=== PATIENT | female | born 1955 | race Two or more races ===

== ENCOUNTER 2024-06-09 15:37 | Emergency (ER) | payer OTHER, MEDICAID, SELFPAY ==
[2024-06-09 16:03] VITALS: BP 132/76; PULSE 86; RESP 16; TEMP 37.1; O2SAT 96
--- NOTE | 2024-06-09 16:09 | XR_ITS ---
Examination: CT cervical spine without contrast 2-D sagittal reconstructions 2-D coronal reconstructions 3-D reconstructions. Exam date and time:June 09, 2024 administered 444 PM Indications: Patient fell today with injury to the neck, neck pain CTDI:vol (mGy) 8.28 DLP: (mGycm) 168 Technique: Multiple 2 mm axial sections of the cervical spine have been obtained. The coronal and sagittal reconstructions have been obtained. 3-D reconstructions have been obtained. Low dose protocols were performed. One or more of the following dose reduction techniques were used; automated exposure control, adjustment of the mA and/or KV according to patient size, use of iterative reconstruction technique. Findings: Axial sections demonstrate intact base of the skull. C1 exhibit satisfactory relationship to the odontoid. No acute cervical vertebral body fracture seen. Alignment posterior spinous processes satisfactory. Impression: No acute cervical fracture.
--- NOTE | 2024-06-09 16:09 | XR_ITS ---
Examination: Vertebroplasty right elbow 3 views Technique: Elbow AP, oblique, lateral 3 views Exam date and time: June 09, 2024 1611 hrs. Indications: Patient fell today with injury to the elbow, elbow pain. Findings: No fracture or dislocation No foreign body Impression: No fracture or dislocation.
--- NOTE | 2024-06-09 16:09 | XR_ITS ---
Examination: CT brain head without contrast. 2-D sagittal coronal reconstructions Date and time of exam:June 09, 2024 1644 hrs. Indications: Patient fell today with injury to the head, head pain CTDI: vol (mGy):52.1 DLP: (mGycm):1059 Technique: Multiple CT axial sections of the brain have been obtained, 5 mm slice thickness. Contrast has not been administered. 2-D sagittal, coronal reconstructions have been obtained Low dose protocols were performed. One or more of the following dose reduction techniques were used; automated exposure control, adjustment of the mA and/or KV according to patient size, use of iterative reconstruction technique. Findings: No significant ventricular enlargement. Intra-axial or extra-axial hemorrhage density is not seen. No mass effect or midline shift Basal cisterns are not remarkable. Fourth ventricle is midline. Cranial vault intact. Impression: Negative for acute hemorrhage, mass effect or midline shift
--- NOTE | 2024-06-09 16:09 | XR_ITS ---
Examination: CT thoracic spine, without contrast. 2-D sagittal reconstructions. 2-D coronal reconstructions. 3-D reconstructions. Date and time of exam:June 09, 2024 1647 hrs. Indications: Patient fell today with injury to the upper back, upper back pain CTDI: vol (mGy):22.1 DLP: (mGycm):771 Technique: Multiple 1.25 mm axial sections of the thoracic spine without intravenous contrast have been obtained. 2-D sagittal and coronal reconstructions have been obtained. 3-D reconstructions have been obtained. Low dose protocols were performed. One or more of the following dose reduction techniques were used; automated exposure control, adjustment of the mA and/or KV according to patient size, use of iterative reconstruction technique. Findings: Moderate osteopenia Adequate alignment thoracic vertebral bodies on the lateral view No thoracic vertebral body compression fracture Mild thoracic spondylosis Thoracic pedicles, laminae, transverse and posterior spinous processes intact No focal thoracic disc protrusions Impression: No acute thoracic fracture
--- NOTE | 2024-06-09 16:09 | XR_ITS ---
Examination: CT pelvis without intravenous contrast. 2-D sagittal and coronal reconstructions. Date and time of exam:June 09, 2024 1652 hrs. Indications: Patient fell today with injury to the left hip, left hip pain CTDI: vol (mGy) :6.89 DLP: (mGycm) : 199 Technique: Multiple 3 mm axial sections of the pelvis have been obtained with the 64 slice high resolution scanner. 2-D sagittal and coronal reconstructions. Low dose protocols were performed. One or more of the following dose reduction techniques were used; automated exposure control, adjustment of the mA and/or KV according to patient size, use of iterative reconstruction technique. Findings: Significant osteopenia Iliac bones acetabular regions anterior rami intact No hip fractures or hip dislocations No pelvic hematoma Normal appendix Urinary bladder intact, contracted Impression: No acute hip or pelvic fracture
--- NOTE | 2024-06-09 16:09 | XR_ITS ---
Examination: CT lumbar spine, without contrast. 2-D sagittal reconstructions. 2-D coronal reconstructions. 3-D reconstructions. Date and time of exam:June 09, 2024 1647 hrs. Indications: Patient fell today with injury to lower back, lower back pain CTDI: vol (mGy):17.7 DLP: (mGycm):527 Technique: Multiple 1.25 mm axial sections of the lumbar spine without intravenous contrast have been obtained. 2-D sagittal and coronal reconstructions have been obtained. 3-D reconstructions have been obtained. Low dose protocols were performed. One or more of the following dose reduction techniques were used; automated exposure control, adjustment of the mA and/or KV according to patient size, use of iterative reconstruction technique. Findings: Adequate alignment lumbar vertebral bodies No lumbar vertebral body compression fracture Moderate lumbar spondylosis Lumbar pedicles, laminae, transverse and posterior spinous processes intact Soft tissue settings demonstrate no lumbar disc protrusion Impression: No acute lumbar fracture
--- NOTE | 2024-06-09 16:10 | PD.EDRME ---
Rapid Medical Screening Exam RME Arrival date/time: 06/09/24 15:37 68-year-old female with Parkinson's disease presents to the emergency department complaint of ground-level fall today Chief Complaint: Fall Vital signs: Vital Signs Temperature 98.7 F 06/09/24 16:03 Pulse Rate 86 06/09/24 16:03 Respiratory Rate 16 06/09/24 16:03 Blood Pressure 132/76 H 06/09/24 16:03 Pulse Oximetry (%) 96 06/09/24 16:03 Oxygen Delivery Method Room Air 06/09/24 16:03
[2024-06-09 16:54] LABS: Basophils % (Auto) 1 % (0-2.5); Eosinophils # (Auto) 0.1 Thou/mm3 (0.0-0.5); Eosinophils % (Auto) 2 % (0-10); Hematocrit 42.6 % (36.0-46.0); Hemoglobin 14.4 g/dL (12.0-16.0); Immature Granulocytes % (Auto) 0 % (0-0); Immature Granulocytes Auto 0.01 Thou/mm3 (0.00-0.00); Lymphocytes # (Auto) 2.6 Thou/mm3 (1.0-4.8); Lymphocytes % (Auto) 42 % (10-50); Mean Corpuscular HGB Conc 33.8 g/dl (31.0-37.0); Mean Corpuscular Hemoglobin 29.9 pg (25.0-35.0); Mean Corpuscular Volume 89 fL (80-100); Monocytes # (Auto) 0.5 Thou/mm3 (0.0-0.8); Monocytes % (Auto) 8 % (0-12); Neutrophils # (Auto) 2.9 Thou/mm3 (1.8-7.7); Neutrophils % (Auto) 47 % (37-80); Nucleated Red Blood Cell % 0 /100 WBC (0); Platelet Count 191 Thou/mm3 (140-440); RDW Standard Deviation 43.8 fL (36.4-46.3); Red Blood Count 4.81 Miln/mm3 (4.00-5.20); White Blood Count 6.1 Thou/mm3 (3.6-11.0)
[2024-06-09 16:59] LABS: Alanine Aminotransferase 17 U/L (10-49); Albumin, Serum 4.9 gm/dL (3.4-4.8); Albumin/Globulin Ratio 2.1 (1.2-2.2); Alkaline Phosphatase 61 U/L (46-116); Anion Gap 9 (7-16); Aspartate Amino Transferase 30 U/L (0-34); BUN/Creatinine Ratio 20 Ratio (12-20); Bilirubin,Total 0.4 mg/dL (0.3-1.2); Blood Urea Nitrogen 22 mg/dL (9-23); Carbon Dioxide 23.9 mMol/L (20.0-31.0); Chloride 106 mMol/L (98-107); Creatinine (Component) 1.1 mg/dL (0.6-1.3); Globulin 2.3 gm/dL (2.3-3.5); Glucose 213 mg/dL (74-106); Osmolality,Calculated 286 (275-295); Sodium 139 mMol/L (136-145); Total Protein 7.2 gm/dL (5.7-8.2); eGFR 54 See Note
--- NOTE | 2024-06-09 17:45 | PD.EDFALL ---
ED Fall Injury RME/HPI General Chief Complaint: Fall Stated Complaint: FALL Time Seen by Provider: 06/09/24 17:45 Arrival date/time: 06/09/24 15:37 68-year-old female with Parkinson's disease presents emergency from today saying she had a ground-level fall today when she fell she fell back and hit her head patient reports no dizziness or weakness prior to the fall patient reports no chest pain or shortness of breath or dizziness. Patient reports a fall with secondary to unsteadiness due to her Parkinson's Limitations: no limitations RME / HPI RME / HPI Narrative: 06/09/24 15:37 68-year-old female with Parkinson's disease presents to the emergency department complaint of ground-level fall today Related Data Allergies Allergy/AdvReac Type Severity Reaction Status Date / Time No Known Allergies Allergy Mild Uncoded 11/05/07 19:46 Review of Systems Review of Systems Systems Reviewed: All systems reviewed, normal except as documented Constitutional Constitutional: Reports system reviewed and no additional complaints, except as documented, Denies fever(s) and Reports headache(s) Eyes Eyes: Reports system reviewed and no additional complaints, except as documented and Denies blurry vision ENT Ears, Nose, Mouth, and Throat: Reports system reviewed and no additional complaints, except as documented, Reports headache(s), Denies nasal congestion and Denies nasal discharge Cardiovascular Cardiovascular: Reports system reviewed and no additional complaints, except as documented, Denies chest pain and Denies dyspnea Respiratory Respiratory: Reports system reviewed and no additional complaints, except as documented, Denies chest congestion, Denies cough and Denies dyspnea Gastrointestinal Gastrointestinal: Reports system reviewed and no additional complaints, except as documented and Denies abdominal pain Musculoskeletal Musculoskeletal: Reports system reviewed and no additional complaints, except as documented, Reports abnormal gait (Right elbow pain), Reports arthralgias (Joint pain right), Denies deformity and Denies joint swelling Integumentary/Breasts Skin/Breast: Reports system reviewed and no additional complaints, except as documented, Denies rash and Reports wounds (Abrasion right elbow) Neurologic Neurologic: Reports system reviewed and no additional complaints, except as documented, Reports as per HPI, Reports abnormal gait (Right elbow pain) and Reports headache(s) Past Medical History Past Medical History NEUROLOGIC: Negative Neurological Disorders CARDIAC: Negative Cardiac Disorders ED Exam General Limitations: Present no limitations General appearance: Present alert and in no apparent distress Head Head exam: Present atraumatic, normocephalic and normal inspection Eye Eye exam: Present normal appearance, PERRL and EOMI; Absent conjunctival injection ENT ENT exam: Present normal exam, normal oropharynx and mucous membranes moist Neck Neck exam: Present normal inspection, full ROM and trachea midline Chest Chest inspection: Present normal inspection and symmetric chest wall rise Respiratory Respiratory exam: Present normal lung sounds bilaterally; Absent respiratory distress Cardiovascular Cardiovascular exam: Present regular rate, normal rhythm and normal heart sounds Abdominal Exam Abdominal exam: Present soft and normal bowel sounds; Absent distention, tenderness, guarding, rebound or rigidity Extremities Exam Extremities exam: Present full ROM and tenderness (Right elbow pain) Back Exam Back exam: Present normal inspection and full ROM Neurological Exam Neurological exam: Present alert, oriented X3 and CN II-XII intact Psychiatric Psychiatric exam: Present normal affect and normal mood Skin Skin exam: Present warm, dry and other (Abrasion right elbow) Course Quality Measures none Orders Category Date Time Status CT cervical spine wo con Stat Exams 06/09/24 16:[address] head/brain wo con Stat Exams 06/09/24 16:[address] lumbar spine wo con Stat Exams 06/09/24 16:[address] pelvis wo con Stat Exams 06/09/24 16:[address] thoracic spine wo con Stat Exams 06/09/24 16:09 Completed XR elbow comp RT min 3V Stat Exams 06/09/24 16:09 Completed CBC Stat Lab 06/09/24 16:30 Completed CMP [Comprehensive Metabolic Panel] Stat Lab 06/09/24 16:30 Completed Vital Signs Vital signs: Vital Signs Temperature 98.7 F 06/09/24 16:03 Pulse Rate 86 06/09/24 16:03 Respiratory Rate 16 06/09/24 16:03 Blood Pressure 132/76 H 06/09/24 16:03 Pulse Oximetry (%) 96 06/09/24 16:03 Oxygen Delivery Method Room Air 06/09/24 16:03 O2 saturation 96% room air within normal limits Fall MDM Narrative MDM Narrative:: 68-year-old female with Parkinson's disease presents emergency from today saying she had a ground-level fall today when she fell she fell back and hit her head patient reports no dizziness or weakness prior to the fall patient reports no chest pain or shortness of breath or dizziness. Patient reports a fall with secondary to unsteadiness due to her Parkinson's On exam patient well-appearing patient does not appear ill or toxic Imaging obtained no acute emergent findings noted Patient discharged home in no distress to follow-up with primary care doctor in the next 24 to 48 hours and for any worsening symptoms to return to the ER immediately Patient data External records reviewed:: [facility] previous records Clinical information provided by:: patient Social determinants that could affect healthcare access:: none Patient has the following chronic illnesses:: See history How is presenting disease/condition affected by chronic disease/condition?: caused by Evaluation data The following diagnostics were reviewed and interpreted by me:: radiology exam(s) Lab and/or radiology exams considered but not ordered:: Radiology obtain Interpretation Summary: Reviewed by me Medications / Prescriptions Medications or Prescriptions considered but not ordered:: Given Medication administrations:: Given Consultations Consultation(s) initiated? (list below): No Diagnosis Fall Differential Diagnosis: other (Closed head injury, fall) Most likely diagnosis given after review of the tests above:: Closed head injury, fall Admission Indicated Admission indicated?: not indicated Admission Request Was there a request for admission?: No Disposition Plan Disposition Plan: Discharge Discharge Attestation Discharge Attestation: The patient and all family members were given an opportunity to ask questions and understood the discharge instructions. Discharge instructions specifically effects, indications for sooner follow up or return to the emergency department, and the expected course of current diagnosis. 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
== END 2024-06-09 17:52 | disposition home or self-care (01) ==
PROVIDERS: Nurse Practitioner Primary Care; Emergency Provider Emergency Medicine; PCP Family Medicine
DX: S19.9XXA Unspecified injury of neck, initial encounter (principal); S09.90XA Unspecified injury of head, initial encounter; S39.92XA Unspecified injury of lower back, initial encounter; S29.9XXA Unspecified injury of thorax, initial encounter; S39.93XA Unspecified injury of pelvis, initial encounter; S59.901A Unspecified injury of right elbow, initial encounter; G20.A1 Parkinson's disease without dyskinesia, without mention of fluctuations; W18.30XA Fall on same level, unspecified, initial encounter
CPT/HCPCS: 36415; 70450; 72125; 72128; 72131; 72192; 73080; 80053; 85025; 99284

== ENCOUNTER 2024-07-31 12:24 | Emergency (ER) | payer MEDICARE, MEDICAID, SELFPAY ==
[2024-07-31 12:57] VITALS: BP 124/74; PULSE 84; RESP 18; TEMP 36.5; O2SAT 96; BMI 25.9
--- NOTE | 2024-07-31 12:57 | XR_ITS ---
Examination: CT brain head without contrast. 2-D sagittal coronal reconstructions Date and time of exam:July 31, 2024 1304 hours INDICATIONS: Severe generalized head pain today CTDI: vol (mGy):52.2 DLP: (mGycm):993 Technique: Multiple CT axial sections of the brain have been obtained, 5 mm slice thickness. Contrast has not been administered. 2-D sagittal, coronal reconstructions have been obtained Low dose protocols were performed. One or more of the following dose reduction techniques were used; automated exposure control, adjustment of the mA and/or KV according to patient size, use of iterative reconstruction technique. Findings: No significant ventricular enlargement. Intra-axial or extra-axial hemorrhage density is not seen. No mass effect or midline shift Basal cisterns are not remarkable. Fourth ventricle is midline. Cranial vault intact. Impression: Negative for acute hemorrhage, mass effect or midline shift
--- NOTE | 2024-07-31 12:57 | XR_ITS ---
Examination: Duplex scan of the lower extremity, unilateral left Date and time of exam: July 31, 2024 1317 hours INDICATIONS: Left leg swelling and pain beginning 3 weeks ago Technique: Duplex scan of the extremity veins using B-mode/grayscale imaging and Doppler spectral analysis and color flow Attention is directed to internal echogenicity, compression and augmentation involving these veins, color flow assessment, spectral analysis Findings: Major deep venous structures in the extremity demonstrate normal course and caliber. There is no evidence of deep vein thrombosis. Normal color flow and spectral analysis Impression: Negative for DVT..
--- NOTE | 2024-07-31 12:57 | EKG_ITS ---
[facility] Test Date: 2024-07-31 Pat Name: GAYE HERNANDEZ Department: Room: - Gender: Female Chief Concierge: : 1955 Requested By: Dony Van (SAMIRA) Order Number: [id number] Reading MD: Dony Van (SAMIRA) Measurements Intervals [place] Rate: 79 P: 75 NM: 158 QRS: 5 QRSD: 82 T: 29 QT: 369 QTc: 424 Interpretive Statements SINUS RHYTHM No previous ECG available for comparison /store/S0/[id number]/[id number].pdf
--- NOTE | 2024-07-31 12:58 | PD.EDRME ---
Rapid Medical Screening Exam RME Arrival date/time: 07/31/24 12:24 68-year-old female history of Parkinson's disease presents to the emergency department complains of headache and leg pain as well as anxiety Chief Complaint: Extremity Problem,Nontraumatic
[2024-07-31 14:00] LABS: Basophils % (Auto) 1 % (0-2.5); Eosinophils # (Auto) 0.1 Thou/mm3 (0.0-0.5); Eosinophils % (Auto) 1 % (0-10); Hemoglobin 14.8 g/dL (12.0-16.0); Immature Granulocytes % (Auto) 0 % (0-0); Immature Granulocytes Auto 0.02 Thou/mm3 (0.00-0.00); Lymphocytes # (Auto) 2.4 Thou/mm3 (1.0-4.8); Lymphocytes % (Auto) 36 % (10-50); Mean Corpuscular HGB Conc 34.4 g/dl (31.0-37.0); Mean Corpuscular Volume 90 fL (80-100); Monocytes # (Auto) 0.6 Thou/mm3 (0.0-0.8); Monocytes % (Auto) 9 % (0-12); Neutrophils # (Auto) 3.4 Thou/mm3 (1.8-7.7); Neutrophils % (Auto) 53 % (37-80); Nucleated Red Blood Cell % 0 /100 WBC (0); Platelet Count 169 Thou/mm3 (140-440); RDW Standard Deviation 43.4 fL (36.4-46.3); Red Blood Count 4.77 Miln/mm3 (4.00-5.20); White Blood Count 6.5 Thou/mm3 (3.6-11.0)
[2024-07-31] MEDS: ALPRazoLAM 0.25 MG TABLET PO (14:09)
[2024-07-31 14:17] LABS: Partial Thromboplastin Time 23.9 Seconds (22.0-36.0); Prothrombin Time 10.8 Seconds (9.0-12.2)
[2024-07-31 14:28] LABS: Alanine Aminotransferase 14 U/L (10-49); Albumin, Serum 4.8 gm/dL (3.4-4.8); Albumin/Globulin Ratio 2.3 (1.2-2.2); Alkaline Phosphatase 59 U/L (46-116); Anion Gap 5 (7-16); Aspartate Amino Transferase 25 U/L (0-34); BUN/Creatinine Ratio 22 Ratio (12-20); Bilirubin,Total 0.8 mg/dL (0.3-1.2); Blood Urea Nitrogen 24 mg/dL (9-23); Calcium 10.2 mg/dL (8.3-10.6); Calcium (Corrected) 10.2 mg/dL (8.5-10.1); Carbon Dioxide 28.8 mMol/L (20.0-31.0); Chloride 107 mMol/L (98-107); Creatinine (Component) 1.1 mg/dL (0.6-1.3); Estimated Creatinine Clearance 46.9 mL/min (>60); Globulin 2.1 gm/dL (2.3-3.5); Glucose 101 mg/dL (74-106); Osmolality,Calculated 285 (275-295); Potassium 4.2 mMol/L (3.4-5.1); Sodium 141 mMol/L (136-145); Total Protein 6.9 gm/dL (5.7-8.2); Troponin I < 0.002 ng/mL (0.0-0.045); eGFR 54 See Note
--- NOTE | 2024-07-31 15:42 | EDNOTE_ITS ---
<Statement entered by Tea Munroe MD - 08/01/24 11:53> As co-signing physician, I was present and available for consult prn. I concur with the plan and care as documented by the midlevel provider. ED Extremity Problem RME/HPI General Chief complaint: Extremity Problem,Nontraumatic Stated complaint: LEFT LEG PAIN WITH PARKINSON'S X 2-3 WKS Time Seen by Provider: 07/31/24 15:28 Arrival date/time: 07/31/24 12:24 RME / HPI RME / HPI Narrative: 07/31/24 12:24 68-year-old female history of Parkinson's disease presents to the emergency department complains of headache and leg pain as well as anxiety Patient is a 68-year-old female with history of Parkinson's disease who presents to the ED with complaint of headache, leg pain, anxiety, and difficulty sleeping intermittently for the last 2 to 3 weeks. Denies any chest pain or shortness of breath. No falls. Related Data Previous Rx's ?Medication ?Instructions ?Recorded trazodone 50 mg tablet 50 mg PO QHSPRN PRN insomnia #14 07/31/24 tabs Allergies Allergy/AdvReac Type Severity Reaction Status Date / Time hydrocodone Allergy Intermediate DIZZY, Verified 07/31/24 12:27 VOMITING Review of Systems Review of Systems Narrative Review of Systems: Review of systems negative except as outlined in the HPI. ED Exam Narrative Physical exam: Constitutional: no acute distress, age appropriate, non-toxic Eyes: PERRL, conjunctivae w/o pallor, EOMI HENT: normocephalic, atraumatic. Oral mucosa moist Respiratory Effort: no stridor, effort normal, no retractions Breath sounds: Clear bilaterally; No rales, No rhonchi, No wheezing Cardiovascular: regular rhythm, S1 and S2 normal, no murmur Abdominal: soft; non-distended, non-tender Musculoskeletal: no deformities, no swelling, no LE edema. Skin: warm, dry; No rash Neurology: alert, oriented X 4. Normal gait. Moves all extremities spontaneously. Pill-rolling tremor noted at rest Psychology: cooperative, normal mood Course Quality Measures none Orders Category Date Time Status EKG (ED ONLY) *Do not use* NOW Care 07/31/24 12:[address] head/brain wo con Stat Exams 07/31/24 12:57 Completed EKG (ED Only) Stat Exams 07/31/24 12:57 Draft US venous doppler LE LT Stat Exams 07/31/24 12:57 Completed CBC Stat Lab 07/31/24 13:50 Completed Comprehensive Metabolic Panel Stat Lab 07/31/24 13:50 Completed Partial Thromboplastin Time Stat Lab 07/31/24 13:50 Completed Prothrombin Time with INR Stat Lab 07/31/24 13:50 Completed Troponin I Stat Lab 07/31/24 13:50 Completed ALPRazoLAM [Xanax] Med 07/31/24 12:57 Discontinued 0.25 mg PO X1 ONE Vital Signs Vital signs: Vital Signs Temperature 97.7 F 07/31/24 12:57 Pulse Rate 84 07/31/24 12:57 Respiratory Rate 18 07/31/24 12:57 Blood Pressure 124/74 07/31/24 12:57 Pulse Oximetry (%) 96 07/31/24 12:57 Oxygen Delivery Method Room Air 07/31/24 12:57 Extremity Problem MDM Narrative MDM Narrative:: Patient is a 68-year-old female who presents with complaint of anxiety, difficulty sleeping, and headaches. Differential diagnoses include ICH, tension headache, migraine, anxiety, insomnia. Low suspicion for ICH based on history, and head CT was negative. Ultrasound of the left lower extremity was obtained as patient is having leg pain as well. Negative for DVT. Laboratory workup reassuring as well. Suspect tension headache and chronic anxiety. Patient requesting Rx for benzodiazepines, which is not appropriate. Encourage patient to follow-up with her PCP. She has an appointment tomorrow. Patient does not require further labs or imaging and does not require inpatient management. Return to ED precautions given and patient verbalized understanding. Patient data External records reviewed:: [facility] previous records Clinical information provided by:: patient and family Social determinants that could affect healthcare access:: none Patient has the following chronic illnesses:: Parkinson's How is presenting disease/condition affected by chronic disease/condition?: exacerbated by Evaluation data The following diagnostics were reviewed and interpreted by me:: lab results, radiology exam(s) and EKG tracing(s) Lab and/or radiology exams considered but not ordered:: None Interpretation Summary: EKG: Sinus rhythm with a rate of 79. [place] and QT intervals within normal limits. No ST/T changes. No STEMI. Interpretation: Normal EKG CBC shows no leukocytosis or anemia CMP shows no electrolyte abnormalities, no RADHA. LFTs less than 3x upper limit of normal UA unremarkable Examination: Duplex scan of the lower extremity, unilateral left Date and time of exam: July 31, 2024 1317 hours INDICATIONS: Left leg swelling and pain beginning 3 weeks ago Technique: Duplex scan of the extremity veins using B-mode/grayscale imaging and Doppler spectral analysis and color flow Attention is directed to internal echogenicity, compression and augmentation involving these veins, color flow assessment, spectral analysis Findings: Major deep venous structures in the extremity demonstrate normal course and caliber. There is no evidence of deep vein thrombosis. Normal color flow and spectral analysis Impression: Negative for DVT.. Examination: CT brain head without contrast. 2-D sagittal coronal reconstructions Date and time of exam:July 31, 2024 1304 hours INDICATIONS: Severe generalized head pain today Findings: No significant ventricular enlargement. Intra-axial or extra-axial hemorrhage density is not seen. No mass effect or midline shift Basal cisterns are not remarkable. Fourth ventricle is midline. Cranial vault intact. Impression: Negative for acute hemorrhage, mass effect or midline shift Medications / Prescriptions Medications or Prescriptions considered but not ordered:: None Medication administrations:: Medication Administration History Discontinued Medications Alprazolam (Alprazolam 0.25 Mg Tablet) 0.25 mg PO X1 ONE Stop: 07/31/24 12:58 Last Admin: 07/31/24 14:09 Dose: 0.25 mg Documented By: See above Consultations Consultation(s) initiated? (list below): No Diagnosis Extremity Problem Differential Diagnosis: other (See MDM section) Most likely diagnosis given after review of the tests above:: Insomnia, anxiety Admission Indicated Admission indicated?: not indicated Admission Request Was there a request for admission?: No Disposition Plan Disposition Plan: Discharge Discharge Attestation Discharge Attestation: The patient and all family members were given an opportunity to ask questions and understood the discharge instructions. Discharge instructions specifically effects, indications for sooner follow up or return to the emergency department, and the expected course of current diagnosis. Patient condition: Stable Discharge Plan Plan Patient Disposition: HOME (Self Care) Prescriptions/Referrals Prescriptions/Med Rec: New trazodone 50 mg tablet 50 mg PO QHSPRN PRN (Reason: insomnia) Qty: 14 0RF Referrals: Jarrett Martin MD [Primary Care Provider] - In 1 week Problem List Clinical Impression: Anxiety, Insomnia Patient/Caregiver Discharge Instructions Education Materials: ED Insomnia Additional Instructions: Follow up with your PCP tomorrow as scheduled. Take medication as prescribed. Return to the ED for new or worsening symptoms. Print Language: Slovak Stand Alone Forms: Olivia Award Info., Patient Portal Info Letter
== END 2024-07-31 16:02 | disposition home or self-care (01) ==
PROVIDERS: Nurse Practitioner Primary Care; Emergency Provider Emergency Medicine; PCP Family Medicine
DX: F41.9 Anxiety disorder, unspecified (principal); G47.00 Insomnia, unspecified; M79.605 Pain in left leg; R51.9 Headache, unspecified
CPT/HCPCS: 36415; 70450; 80053; 84484; 85025; 85610; 85730; 93005; 93971; 99284; A9270